=== PATIENT | female | born 1940 | race Caucasian/White ===

== ENCOUNTER → 2018-10-17 | Outpatient (CLI) | payer MEDICARE, BC ==
[~2018-10-17] MED LIST: CALC-891 PO; LEVO75CA4 PO; LOR5/325 PO; LOSA25TA57 PO; PENI-24 PO; VITA1CAP46 PO; panadol
== END ==
LOC: LAB 12:21
PROVIDERS: ATTEND Internal Medicine
DX: E89.0 Postprocedural hypothyroidism (principal)
CPT/HCPCS: 36415; 84439; 84443

== ENCOUNTER → 2018-11-28 | Outpatient (CLI) | payer MEDICARE, BC | LOC: LAB 09:14 | PROVIDERS: ATTEND Internal Medicine Geriatric Medicine | DX: I15.8 Other secondary hypertension (principal); E78.00 Pure hypercholesterolemia, unspecified | CPT/HCPCS: 36415; 82040; 82247; 82310; 82374; 82435; 82465; 82565; 82947; 83718; 84075; 84132; 84155; 84295; 84450; 84460; 84478; 84520; 85027 ==